=== PATIENT | male | born 1995 | race American Indian/Alaskan Native ===

== ENCOUNTER 2017-07-02 15:34 | Emergency (ER) | payer SELFPAY ==
[2017-07-02] MEDS ORDERED: TYLENOL ONE (15:43)
[2017-07-02 15:47] VITALS: BP 137/67
[2017-07-02 16:32] LABS: Basophils % (Auto) 0.2 % (0.0-1.8); Eosinophils % (Auto) 0.4 % (0.0-4.3); Hematocrit 41.4 % (35.5-45.6); Hemoglobin 14.1 gm/dl (11.8-15.2); Lymphocytes # (Auto) 0.5 K/mm3 (1.2-5.4); Lymphocytes % (Auto) 5.2 % (13.4-35.0); Mean Corpuscular HGB Conc 34 % (32-34); Mean Corpuscular Hemoglobin 28 pg (28-32); Mean Corpuscular Volume 82 fl (84-94); Monocytes # (Auto) 1.1 K/mm3 (0.0-0.8); Monocytes % (Auto) 10.6 % (0.0-7.3); Platelet Count 224 K/mm3 (140-440); Red Blood Count 5.05 M/mm3 (3.65-5.03); Red Cell Distribution Width 13.2 % (13.2-15.2)
[2017-07-02 16:45] LABS: BUN/Creatinine Ratio 8; Blood Urea Nitrogen 7 mg/dL (9-20); Calcium 9.3 mg/dL (8.4-10.2); Hemolysis Index 1
[2017-07-02] MEDS ORDERED: TYLENOL PO ONE (17:13)
--- NOTE | 2017-07-02 17:40 | XRay Report ---
FINAL REPORT PROCEDURE: XR CHEST ROUTINE 2V TECHNIQUE: PA and lateral chest radiographs were obtained. CPT 54080 HISTORY: Shortness of breath. COMPARISON: No prior studies are available for comparison. FINDINGS: Heart: Normal. Mediastinum/Vessels: Normal. Lungs/Pleural space: Normal. Bony thorax: No acute osseous abnormality. Other: IMPRESSION: No radiographic evidence of acute cardiopulmonary disease.
--- NOTE | 2017-07-02 20:15 | Emergency Department Report ---
- General Chief Complaint: Upper Respiratory Infection Stated Complaint: CP/BACK PAIN/PAINFUL COUGH Time Seen by Provider: 07/02/17 19:41 Source: patient Mode of arrival: Ambulatory Limitations: No Limitations - History of Present Illness Initial Comments: Patient 21-year-old -[place] male history of asthma as for cough fever sinus pressure pain body aches 2 days patient states to albuterol and is noted sick contacts at home and at school symptoms worse at night include wheezing fever 101 at home 102.7 in triage today patient denies shortness of breath patient ambulatory no dizziness no headache. MD Complaint: fever, cough, sore throat, rhinorrhea, nasal congestion Onset/Timin -: days(s) Severity: moderate Severity scale (0 -10): 4 Quality: aching Consistency: constant Improves With: nothing Worsens With: activity Associated Symptoms: fever, chills, myalgias, rhinorrhea, nasal congestion, sore throat, cough, chest pain (chest wall pain ), nausea. denies: vomiting, diarrhea, dysuria, rash, confusion, right sweats, weight loss, epistaxis, hoarseness, ear pain Treatments Prior to Arrival: none - Related Data Previous Rx's Medication Instructions Recorded Last Taken Type ALBUTEROL Inhaler [ProAir HFA 2 puff IH QID PRN #1 inhalation 07/02/17 Unknown Rx Inhaler] Azithromycin [Zithromax Z-NIRAJ] 250 mg PO DAILY #6 tab 07/02/17 Unknown Rx Benzonatate [Tessalon Perles] 100 mg PO Q8HR #30 capsule 07/02/17 Unknown Rx Ibuprofen 800 mg PO TID PRN #30 tablet 07/02/17 Unknown Rx Oseltamivir [Tamiflu] 75 mg PO BID #10 cap 07/02/17 Unknown Rx predniSONE [Deltasone] 40 mg PO QDAY #10 tab 07/02/17 Unknown Rx Allergies Allergy/AdvReac Type Severity Reaction Status Date / Time No Known Allergies Allergy Unverified 07/02/17 15:43 ED Review of Systems ROS: Stated complaint: CP/BACK PAIN/PAINFUL COUGH Other details as noted in HPI Constitutional: denies: chills, fever Eyes: denies: eye pain, eye discharge, vision change ENT: congestion. denies: ear pain, throat pain Respiratory: cough, wheezing. denies: shortness of breath Cardiovascular: chest pain (chest wall pain with cough ) Endocrine: no symptoms reported Gastrointestinal: denies: abdominal pain, nausea, diarrhea Genitourinary: denies: urgency, dysuria Musculoskeletal: denies: back pain, joint swelling, arthralgia Skin: denies: rash, lesions Neurological: denies: headache, weakness, paresthesias Psychiatric: denies: anxiety, depression Hematological/Lymphatic: denies: easy bleeding, easy bruising ED Past Medical Hx - Past Medical History Previous Medical History?: Yes Additional medical history: heart murmur - Surgical History Past Surgical History?: No - Social History Smoking Status: Never Smoker Substance Use Type: None - Medications Home Medications: Home Medications Medication Instructions Recorded Confirmed Last Taken Type ALBUTEROL Inhaler [ProAir HFA 2 puff IH QID PRN #1 inhalation 07/02/17 Unknown Rx Inhaler] Azithromycin [Zithromax Z-NIRAJ] 250 mg PO DAILY #6 tab 07/02/17 Unknown Rx Benzonatate [Tessalon Perles] 100 mg PO Q8HR #30 capsule 07/02/17 Unknown Rx Ibuprofen 800 mg PO TID PRN #30 tablet 07/02/17 Unknown Rx Oseltamivir [Tamiflu] 75 mg PO BID #10 cap 07/02/17 Unknown Rx predniSONE [Deltasone] 40 mg PO QDAY #10 tab 07/02/17 Unknown Rx ED Physical Exam - General Limitations: No Limitations General appearance: alert, in no apparent distress - Head Head exam: Present: atraumatic, normocephalic - Eye Eye exam: Present: normal appearance, PERRL, EOMI Pupils: Present: normal accommodation - ENT ENT exam: Present: mucous membranes moist - Expanded ENT Exam Expanded TM/Canal exam: Erythema: Left TM, Canal Tenderness: Left TM Mouth exam: Absent: trismus Throat exam: Positive: tonsillar erythema, tonsillomegaly. Negative: tonsillar exudate, R peritonsillar mass, L peritonsillar mass - Neck Neck exam: Present: normal inspection, lymphadenopathy. Absent: tenderness - Respiratory Respiratory exam: Present: normal lung sounds bilaterally, wheezes (mild wheezing ), chest wall tenderness. Absent: respiratory distress, stridor - Cardiovascular Cardiovascular Exam: Present: regular rate, normal rhythm. Absent: systolic murmur, diastolic murmur, rubs, gallop - GI/Abdominal GI/Abdominal exam: Present: soft, normal bowel sounds. Absent: distended, tenderness, guarding, rebound, rigid, mass, bruit, pulsatile mass, hernia - Rectal Rectal exam: Present: deferred - Extremities Exam Extremities exam: Present: normal inspection, normal capillary refill - Back Exam Back exam: Present: normal inspection, full ROM. Absent: tenderness, CVA tenderness (R), muscle spasm, paraspinal tenderness, vertebral tenderness, rash noted - Neurological Exam Neurological exam: Present: alert, oriented X3, CN II-XII intact, normal gait, reflexes normal. Absent: motor sensory deficit - Psychiatric Psychiatric exam: Present: normal affect, normal mood - Skin Skin exam: Present: warm, dry, intact, normal color. Absent: rash ED Course Vital Signs 07/02/17 15:44 Temperature 102.7 F H Pulse Rate 102 H Respiratory 20 Rate Blood Pressure 137/67 O2 Sat by Pulse 98 Oximetry ED Medical Decision Making - Lab Data Result diagrams: 07/02/17 16:19 07/02/17 16:19 Laboratory Tests 07/02/17 07/02/17 16:19 16:19 WBC 10.2 RBC 5.05 H Hgb 14.1 Hct 41.4 MCV 82 L MCH 28 MCHC 34 RDW 13.2 Plt Count 224 Lymph % (Auto) 5.2 L Cand[place] % (Auto) 10.6 H Eos % (Auto) 0.4 Baso % (Auto) 0.2 Lymph # 0.5 L [place] # 1.1 H Eos # 0.0 Baso # 0.0 Seg Neutrophils % 83.6 H Seg Neutrophils # 8.5 H Sodium 137 Potassium 3.6 Chloride 98.6 Carbon Dioxide 23 Anion Gap 19 BUN 7 L Creatinine 0.9 Estimated GFR > 60 BUN/Creatinine Ratio 8 Glucose 106 H Calcium 9.3 - Radiology Data Radiology results: report reviewed, image reviewed no opacities no infiltrates - Medical Decision Making Patient 21-year-old -[place] male history of asthma as for cough fever sinus pressure pain body aches 2 days patient states to albuterol and is noted sick contacts at home and at school symptoms worse at night include wheezing fever 101 at home 102.7 in triage today patient denies shortness of breath patient ambulatory no dizziness no headache. pt appears well well hydrated well nourished ent: mild left tm erythema pain , nose: boggy clear postnasal drip, no polyps no obstruction, pharynx: moderate erythema no exudate no lesion uvula midline no stridor, lungs clear bilat no wheezing, pt is tolerating po intake no n/v/d plan: refill albuterol, prednisone, zpack, ibuprofen, tessalon, follow up with pcp in 2-3 days pt verbalized agreement and understanding of same. Critical care attestation.: If time is entered above; I have spent that time in minutes in the direct care of this critically ill patient, excluding procedure time. ED Disposition Clinical Impression: Bronchitis Upper respiratory infection Qualifiers: URI type: unspecified viral URI Qualified Code(s): J06.9 - Acute upper respiratory infection, unspecified Disposition: TO HOME OR SELFCARE Is pt being admited?: No Does the pt Need Aspirin: No Condition: Good Instructions: Acute Bronchitis (ED), Upper Respiratory Infection (ED) Prescriptions: ALBUTEROL Inhaler [ProAir HFA Inhaler] 2 puff IH QID PRN #1 inhalation PRN Reason: Shortness Of Breath Azithromycin [Zithromax Z-NIRAJ] 250 mg PO DAILY #6 tab Benzonatate [Tessalon Perles] 100 mg PO Q8HR #30 capsule Ibuprofen 800 mg PO TID PRN #30 tablet PRN Reason: pain fever Oseltamivir [Tamiflu] 75 mg PO BID #10 cap predniSONE [Deltasone] 40 mg PO QDAY #10 tab Referrals: GABRIELA PEREZ MD [Staff Physician] - 3-5 Days Forms: Work/School Release Form(ED) Time of Disposition: 20:29
== END 2017-07-02 20:45 | disposition home or self-care (01) ==
LOC: ED 15:34
DX: J06.9 Acute upper respiratory infection, unspecified (principal); J45.909 Unspecified asthma, uncomplicated
CPT/HCPCS: 36415; 71046; 80048; 85025; 87040; 99284